=== PATIENT | female | born 1990 | race Caucasian/White ===

== ENCOUNTER → 2024-10-03 10:38 | Outpatient (CLI) | payer OTHER, SELFPAY ==
[2024-10-05 19:07] LABS: AFP Value 86.8 ng/mL (.); Gest Age on Col Date 18.4 weeks (.); Insulin Dep Diabetes No (.); OSBR Risk 1IN 965 (.); Results Report (.); Test Results *Screen Negative* (.)
[2024-10-10 10:04] LABS: PDF SCANNED
== END ==
PROVIDERS: PCP Nurse Practitioner Family; Referring Provider Obstetrics & Gynecology; Visit Provider Obstetrics & Gynecology
DX: Z34.02 Encounter for supervision of normal first pregnancy, second trimester (principal); Z3A.18 18 weeks gestation of pregnancy
CPT/HCPCS: 36415; 82105

== ENCOUNTER → 2024-10-23 10:57 | Outpatient (CLI) | payer OTHER, SELFPAY ==
--- NOTE | 2024-10-23 10:58 | DI.US.S_ITS ---
PROCEDURE: US OB >= 14 WEEKS FETUS INDICATIONS: anatomy OUTSIDE/PRIOR DATING DATA: Last menstrual period (LMP): 05/27/24. LMP-based estimated date of delivery (COLE): 03/03/25. First dating scan (date and location): 07/24/24. Estimated date of delivery (COLE) from first dating scan: Not available. The calculations are made using the working COLE of 03/03/25. TECHNIQUE: Real-time scanning was performed of the fetus, with image documentation and biometric measurements. Endovaginal scanning: Not performed COMPARISON: None. FINDINGS: General: A single living intrauterine gestation is present. Presentation: Breech. Placenta: Placental position is anterior , without previa. There is a thick septation, potentially arising from a placenta seen in the right lateral uterus, not well defined. Amniotic fluid index: 14.9 cm, normal range is 5-24 cm. Single deepest vertical pocket is 4.1 cm. heart rate: 137 beats per minute. Maternal cervical canal: 3.8 cm long. Normal lower limit is 2.5 cm. biometrics: Biparietal diameter: 5.2 cm, 21 weeks six days Head circumference: 19.4 cm, 21 weeks four days Abdominal circumference: 17.6 cm, 22 weeks four days Femur length: 3.7 cm, 21 weeks five days Clinically estimated gestational age: 21 weeks two days Composite gestational age from present scan: 22 weeks 0 days Estimated weight and percentile: 476 g, 85th percentile Anatomic survey: Neuro: Ventricles are non-dilated at less than 10 mm. Cisterna magna is normal at 3-11 mm. Cerebellum is normal in size and morphology. Nuchal skin fold: Normal at less than 6 mm between 14-21 weeks gestational age. Face: Nose and lips, facial profile are normal. Spine: No evidence for spina bifida. Heart: 4-chambered heart is present, with normal ventricular outflow tracts. Diaphragm: Diaphragm is intact. Stomach: Left-sided stomach is present. Kidneys: No hydronephrosis. Normal is less than 5 mm in 2nd trimester, less than 7 mm in 3rd trimester. Cord: 3-vessel cord has orthotopic insertion. Bladder: Normal in size. Extremities: All 4 extremities identified. IMPRESSION: Single living intrauterine with estimated weight at the 85th percentile. Composite gestational age five days ahead of the expected gestational age. Symmetric growth and normal anatomy. Thick right lateral uterine membrane, potentially arising from the placenta. Differential diagnosis includes uterine synechia versus circumvallate placenta. Full documentation of origin and attachment points is recommended for further characterization. Closed cervix and normal amniotic fluid volume. We strive to produce accurate, complete, and clear reports of imaging services. To assist us in improving patient care, this report was composed using standard report templates and voice recognition software. Therefore, it may contain abnormal punctuation, insertions and/or omissions. Occasional wrong-word or sound-alike substitutions may occur. Though we review the report and make efforts to correct it, we do recommend that the report be read carefully in proper context to recognize any text inaccuracies. Dictated by: Selene Webb M.D. on 10/24/2024 at 14:07 Approved by: Selene Webb M.D. on 10/24/2024 at 14:14
== END ==
PROVIDERS: PCP Nurse Practitioner Family; Referring Provider Obstetrics & Gynecology; Visit Provider Obstetrics & Gynecology
DX: Z34.82 Encounter for supervision of other normal pregnancy, second trimester (principal); Z3A.22 22 weeks gestation of pregnancy
CPT/HCPCS: 76811

== ENCOUNTER → 2024-11-28 09:47 | Outpatient (CLI) | payer OTHER, SELFPAY ==
[2024-11-28 11:30] LABS: Hemoglobin 13.5 g/dL (12.0-16.0)
[2024-11-28 11:47] LABS: GTT (PREG) 1 Hour PP 50gm Dose 88 mg/dL (76-139)
== END ==
LOC: LAB 09:48
PROVIDERS: PCP Nurse Practitioner Family; Referring Provider Obstetrics & Gynecology; Visit Provider Obstetrics & Gynecology
DX: Z34.82 Encounter for supervision of other normal pregnancy, second trimester (principal); Z3A.26 26 weeks gestation of pregnancy
CPT/HCPCS: 36415; 82950; 85014; 85018